=== PATIENT | female | born 1930 | race African-American/Black ===

== ENCOUNTER 2017-01-07 13:41 | Inpatient (IN) | payer MEDICARE ==
[~2017-01-07] VITALS: Ht 177.8 cm; Wt 99.8 kg
[~2017-01-07 13:41] MED LIST: LISI40TA4 PO; LOVA20TA2 PO; METF500T4 PO
[2017-01-07] MEDS ORDERED: SODIUM CHLORIDE 0.9% 1,000 ML IV ONE (14:17)
[2017-01-07 14:45] LABS: HEMOGLOBIN. 11.3 g/dL (12.0-16.0); MEAN CORPUSCULAR HEMOGLOBIN 30.8 pg (28.0-32.0); MEAN CORPUSCULAR VOLUME 92.5 fL (81.0-99.0); MEAN PLATELET VOLUME 8.2 fl (7.4-10.4); PLATELET 149 x1000/uL (130-400); RED BLOOD CELL COUNT 3.68 mill/uL (4.2-5.4); RED CELL DISTRIBUTION WIDTH 13.8 % (11.6-14.6)
[2017-01-07 15:00] LABS: CARBON DIOXIDE 26 mEq/L (21-32); CHLORIDE 106 mEq/L (98-107); ETHANOL BLOOD < 10 mg/dL; TROPONIN I < 0.02 ng/mL (0.00-0.04)
[2017-01-07 15:42] LABS: PLATELET ESTIMATE NORMAL
[2017-01-07] MEDS ORDERED: ASPIRIN 325MG EC TABLET PO ONE (16:15)
[2017-01-07 16:16] LABS: CLARITY URINE CLEAR (CLEAR); COLOR URINE YELLOW (YELLOW); GLUCOSE URINE NEGATIVE (NEGATIVE); KETONES URINE TRACE (NEGATIVE); LEUKOCYTE ESTERASE URINE 2+ (NEGATIVE); NITRITE URINE NEGATIVE (NEGATIVE); OCCULT BLOOD URINE NEGATIVE (NEGATIVE); PROTEIN URINE NEGATIVE (NEGATIVE); SPECIFIC GRAVITY URINE 1.025 (1.005-1.030); UROBILINOGEN URINE 0.2 E.U./dL (0.2-1.0)
[2017-01-07 16:31] LABS: *AMPHETAMINES SCREEN URINE NEGATIVE (NEGATIVE); *BARBITURATES SCREEN URINE NEGATIVE (NEGATIVE); *BENZODIAZEPINES SCREEN URINE NEGATIVE (NEGATIVE); *COCAINE SCREEN URINE NEGATIVE (NEGATIVE); CANNABINOID URINE SCREEN NEGATIVE (NEGATIVE); METHADONE URINE SCREEN NEGATIVE (NEGATIVE); OPIATES URINE SCREEN NEGATIVE (NEGATIVE); PHENCYCLIDINE URINE SCREEN NEGATIVE (NEGATIVE)
[2017-01-07] MEDS ORDERED: CEFTRIAXONE 1 G PREMIX 50 ML IV ONE (16:45)
[2017-01-07] MEDS ORDERED: ACETAMINOPHEN 650MG/20.3ML UDC PO PRN (18:00)
[2017-01-07] MEDS ORDERED: DEXTROSE 50% WATER 50ML SYRINGE IV PRN (18:00)
[2017-01-07] MEDS ORDERED: NITROGLYCERIN 0.4MG TABLET SL SL PRN (18:00)
[2017-01-07 19:01] VITALS: BP 166/72
[2017-01-07 19:30] VITALS: BP 164/78
[2017-01-07 20:00] VITALS: BP 164/78
[2017-01-07] MEDS ORDERED: CLOP75TA33 PO (20:41)
[2017-01-07] MEDS ORDERED: HYDR-4135 PO (20:41)
[2017-01-07] MEDS ORDERED: CHLO25TA27 PO (20:42)
[2017-01-07] MEDS ORDERED: LATA2.5D2 BOTHEYE (20:58)
[2017-01-07] MEDS: INSULIN LISPRO 100 UNITS/ML SUBCUT SCH ×2 (21:00→21:27)
[2017-01-07] MEDS: BLOOD SUGAR DIAGNOSTIC STRIP TEST SCH (21:27)
[2017-01-07 21:30] VITALS: BP 150/78
[2017-01-07] MEDS ORDERED: CLONIDINE 0.1MG TABLET PO PRN (22:00)
[2017-01-07] MEDS ORDERED: ATORVASTATIN CALCIUM 20MG TABLET PO SCH (22:13)
[2017-01-07] MEDS ORDERED: LATANOPROST 0.005% OPHTH DROPS 2.5ML BOTHEYE SCH (23:00)
[2017-01-07 23:02] LABS: CREATINE KINASE MB FRACTION < 0.5 ng/mL (0.5-3.6); TROPONIN I < 0.02 ng/mL (0.00-0.04)
[2017-01-08] VITALS (7 sets, daily range): BP systolic 123–148; BP diastolic 46–86
[2017-01-08 05:51] LABS: CARBON DIOXIDE 29 mEq/L (21-32); CHLORIDE 111 mEq/L (98-107); TROPONIN I < 0.02 ng/mL (0.00-0.04)
[2017-01-08 05:56] LABS: CREATINE KINASE MB FRACTION < 0.5 ng/mL (0.5-3.6); HDL CHOLESTEROL 75 mg/dL (40-59)
[2017-01-08 06:01] LABS: LDL CHOLESTEROL 54 mg/dL (5-100)
[2017-01-08 06:02] LABS: BASOPHILS % 0.3 % (0.0-2.0); EOSINOPHILS % 1.6 % (0.0-5.0); HEMOGLOBIN. 10.3 g/dL (12.0-16.0); LYMPHOCYTES % 24.5 % (20.0-50.0); MEAN CORPUSCULAR HEMOGLOBIN 30.8 pg (28.0-32.0); MEAN CORPUSCULAR VOLUME 92.5 fL (81.0-99.0); MONOCYTES % 8.6 % (2.0-8.0); PLATELET 150 x1000/uL (130-400); RED BLOOD CELL COUNT 3.35 mill/uL (4.2-5.4); RED CELL DISTRIBUTION WIDTH 13.3 % (11.6-14.6)
[2017-01-08] MEDS: BLOOD SUGAR DIAGNOSTIC STRIP TEST SCH ×3 (06:17→17:40)
[2017-01-08] MEDS: INSULIN LISPRO 100 UNITS/ML SUBCUT SCH ×3 (08:10→18:10)
[2017-01-08] MEDS ORDERED: METFORMIN HCL 500MG TABLET PO SCH ×2 (08:10→17:00)
[2017-01-08] MEDS ORDERED: CLOPIDOGREL 75MG TABLET PO SCH ×2 (09:00)
[2017-01-08] MEDS ORDERED: LISINOPRIL 40MG TABLET PO SCH ×2 (09:00)
[2017-01-08] MEDS ORDERED: HYDRALAZINE HCL 50MG TABLET PO SCH ×2 (09:00)
[2017-01-08] MEDS ORDERED: ASPIRIN 325MG EC TABLET PO SCH (09:00)
[2017-01-08 15:11] LABS: CREATINE KINASE MB FRACTION 0.6 ng/mL (0.5-3.6); TROPONIN I < 0.02 ng/mL (0.00-0.04)
[2017-01-08] MEDS ORDERED: LOVA20TA2 PO (18:51)
== END 2017-01-08 20:40 | disposition home or self-care (01) | DRG 206 ==
LOC: ER 13:54 → 7WST 14:23 → EDBEDREQ 16:36 → ENRESERV 16:54
PROVIDERS: ADMIT Internal Medicine Critical Care Medicine; ATTEND Internal Medicine Critical Care Medicine
DX: M94.0 Chondrocostal junction syndrome [Tietze] (principal); E11.9 Type 2 diabetes mellitus without complications; I10 Essential (primary) hypertension; Z96.641 Presence of right artificial hip joint; T50.2X5A Adverse effect of carbonic-anhydrase inhibitors, benzothiadiazides and other diuretics, initial encounter; M19.90 Unspecified osteoarthritis, unspecified site; R44.1 Visual hallucinations; E78.5 Hyperlipidemia, unspecified; F17.200 Nicotine dependence, unspecified, uncomplicated; Z79.84 Long term (current) use of oral hypoglycemic drugs; Z80.0 Family history of malignant neoplasm of digestive organs; Z82.0 Family history of epilepsy and other diseases of the nervous system; Y92.89 Other specified places as the place of occurrence of the external cause; Z83.3 Family history of diabetes mellitus; Z86.73 Personal history of transient ischemic attack (TIA), and cerebral infarction without residual deficits; Z79.899 Other long term (current) drug therapy; Z90.49 Acquired absence of other specified parts of digestive tract; H40.9 Unspecified glaucoma
CPT/HCPCS: 36415; 70450; 71010; 80053; 80061; 80305; 81001; 82553; 82962; 83036; 83880; 84443; 84484; 85025; 93005; 96360; 96361; 99285; G0482; J0696; J7030